=== PATIENT | female | born 1960 | race Caucasian/White ===

== ENCOUNTER 2017-04-27 10:53 | Emergency (ER) | payer BC, OTHER ==
[~2017-04-27] VITALS: Ht 157.5 cm; Wt 81.7 kg
[~2017-04-27 10:53] MED LIST: ASPIRIN325 PO; GABAPENTIN PO; LEVEMIR SC; NOVOLOG100 UNIT/1 SC; PLAVIX 75 MG TA75 M1 PO; PREDNISONE 5 MG5 M1 PO; SYNTHROID300 MCG PO; TESSALON PERLE100 MG PO; VENTOLIN HFA 1818 GM INH; ZOCOR40 MG PO; ZPAK
[2017-04-27 13:10] VITALS: BP 141/82
== END 2017-04-27 13:10 | disposition home or self-care (01) ==
LOC: ER 10:53
DX: I73.9 Peripheral vascular disease, unspecified (principal); M79.604 Pain in right leg; F17.210 Nicotine dependence, cigarettes, uncomplicated; E11.9 Type 2 diabetes mellitus without complications; Z88.6 Allergy status to analgesic agent